=== PATIENT | female | born 1990 | race Caucasian/White ===

== ENCOUNTER 2021-07-09 07:06 | Emergency (ER) | payer OTHER ==
[~2021-07-09] VITALS: Ht 160 cm; Wt 75.0 kg
[2021-07-09] MEDS ORDERED: OMEP20 PO (07:28)
[2021-07-09] MEDS ORDERED: METF-960 PO (07:28)
[2021-07-09] MEDS ORDERED: ALBUTEROL SULFATE HFA 90 MCG/PUFF 8 GM INHALER IH ONE (07:45)
[2021-07-09] MEDS ORDERED: ACETAMINOPHEN 500 MG TABLET PO ONE (07:45)
[2021-07-09] MEDS ORDERED: SODIUM CHLORIDE 0.9% 1,000 ML IV ONE (07:45)
[2021-07-09 08:02] LABS: COVID AG,FIA SOURCE NASOPHARYNGEAL
[2021-07-09 08:04] LABS: BASOPHILS % (AUTO) 0.3 % (0.0-2.0); EOSINOPHILS % (AUTO) 2.6 % (1.0-6.0); HEMATOCRIT 38.4 % (36-46); HEMOGLOBIN 13.1 g/dL (12.0-16.0); LYMPHOCYTES # (AUTO) 2.6 K/uL (1.0-4.8); LYMPHOCYTES % (AUTO) 28.4 % (22.0-44.0); MEAN CORPUSCULAR HEMOGLOBIN 31.2 pg (26.0-34.0); MEAN CORPUSCULAR HGB CONC 34.2 G/dL (31.0-37.0); MEAN CORPUSCULAR VOLUME 91 fL (80-100); MONOCYTES # (AUTO) 0.6 K/uL (0.1-1.0); MONOCYTES % (AUTO) 6.7 % (2.0-9.0); NEUTROPHILS # (AUTO) 5.7 K/uL (1.8-7.7); PLATELET COUNT (AUTO) 232 K/uL (150-450); RED CELL DISTRIBUTION WIDTH 14.3 % (11.5-14.5)
[2021-07-09 08:20] LABS: ANION GAP 8 mmol/L (8-16); CALCIUM, TOTAL 8.6 mg/dL (8.8-10.5); CARBON DIOXIDE 29 mmol/L (22-29); CHLORIDE 105 mmol/L (98-107); CREATININE 0.59 mg/dL (0.60-1.30); GLOMERULAR FILTR. RATE CALC > 60 mL/min (>60); GLUCOSE,RANDOM 115 mg/dL (70-110); POTASSIUM 4.3 mmol/L (3.5-5.1); SODIUM SERUM 142 mmol/L (136-145); UREA NITROGEN, BLOOD 6 mg/dL (7-18)
[2021-07-09 08:43] LABS: ALANINE AMINOTRANSFERASE 57 U/L (12-78); ALBUMIN 2.9 g/dL (3.4-5.0); ALKALINE PHOSPHATASE 108 U/L (46-116); ASPARTATE AMINOTRANSFERASE 34 U/L (15-37); BILIRUBIN,TOTAL 0.3 mg/dL (0.1-1.0); HCG,QUANTITATIVE < 1 mIU/mL (0-6); LIPASE 90 U/L (73-393); TOTAL PROTEIN, SERUM 7.5 g/dL (6.4-8.2)
[2021-07-09 08:44] LABS: INFLUENZA TYPE A NEGATIVE FOR TYPE A (NEGATIVE); INFLUENZA TYPE B NEGATIVE FOR TYPE B (NEGATIVE); RAPID GROUP A STREP NEGATIVE (NEGATIVE)
[2021-07-09] MEDS ORDERED: KETOROLAC TROMETHAMINE 30 MG/ML VIAL IVP ONE (09:00)
[2021-07-09 09:30] VITALS: BP 99/59
== END 2021-07-09 10:48 | disposition home or self-care (01) ==
LOC: EMS 07:07
DX: J06.9 Acute upper respiratory infection, unspecified (principal); R11.2 Nausea with vomiting, unspecified; R19.7 Diarrhea, unspecified; J45.909 Unspecified asthma, uncomplicated; E11.9 Type 2 diabetes mellitus without complications; Z20.822 Contact with and (suspected) exposure to COVID-19; Z79.84 Long term (current) use of oral hypoglycemic drugs
CPT/HCPCS: 36415; 80053; 83690; 84702; 85025; 87426; 87430; 87804; 94640; 96361; 96374; 99283; J1885; J7030; U0003; J3535

== ENCOUNTER 2021-10-20 18:34 | Emergency (ER) | payer OTHER ==
[~2021-10-20] VITALS: Ht 139.7 cm; Wt 90.9 kg
[~2021-10-20 18:34] MED LIST: METF-1211 PO; OMEP20 PO
[2021-10-20 19:14] VITALS: BP 128/69
[2021-10-20] MEDS ORDERED: ALBU8HFA IH (19:16)
[2021-10-20 19:52] LABS: BASOPHILS % (AUTO) 0.4 % (0.0-2.0); HEMATOCRIT 40.4 % (36-46); HEMOGLOBIN 13.8 g/dL (12.0-16.0); LYMPHOCYTES # (AUTO) 2.5 K/uL (1.0-4.8); LYMPHOCYTES % (AUTO) 34.4 % (22.0-44.0); MEAN CORPUSCULAR HEMOGLOBIN 31.1 pg (26.0-34.0); MEAN CORPUSCULAR HGB CONC 34.3 G/dL (31.0-37.0); MEAN CORPUSCULAR VOLUME 91 fL (80-100); MONOCYTES # (AUTO) 0.4 K/uL (0.1-1.0); MONOCYTES % (AUTO) 5.6 % (2.0-9.0); NEUTROPHILS # (AUTO) 4.3 K/uL (1.8-7.7); NEUTROPHILS % (AUTO) 58.6 % (40.0-70.0); PLATELET COUNT (AUTO) 268 K/uL (150-450); RED BLOOD CELL COUNT(AUTO) 4.45 MIL/uL (4.00-5.20); RED CELL DISTRIBUTION WIDTH 14.2 % (11.5-14.5)
[2021-10-20 20:12] LABS: ANION GAP 10 mmol/L (8-16); CALCIUM, TOTAL 9.1 mg/dL (8.8-10.5); CARBON DIOXIDE 27 mmol/L (22-29); CHLORIDE 103 mmol/L (98-107); CREATININE 0.54 mg/dL (0.60-1.30); GLUCOSE,RANDOM 107 mg/dL (70-110); POTASSIUM 3.8 mmol/L (3.5-5.1); SODIUM SERUM 140 mmol/L (136-145); UREA NITROGEN, BLOOD 8 mg/dL (7-18)
[2021-10-20 20:13] LABS: GLOMERULAR FILTR. RATE CALC > 60 mL/min (>60)
[2021-10-20 20:26] LABS: ALANINE AMINOTRANSFERASE 89 U/L (12-78); ALBUMIN 3.2 g/dL (3.4-5.0); ALKALINE PHOSPHATASE 120 U/L (46-116); ASPARTATE AMINOTRANSFERASE 52 U/L (15-37); BILIRUBIN,TOTAL 0.2 mg/dL (0.1-1.0); HCG,QUANTITATIVE 1 mIU/mL (0-6); LIPASE 119 U/L (73-393); TOTAL PROTEIN, SERUM 8.3 g/dL (6.4-8.2)
[2021-10-20] MEDS ORDERED: ACETAMINOPHEN 500 MG TABLET PO ONE (21:45)
[2021-10-20] MEDS ORDERED: ONDANSETRON HCL 4 MG TABLET PO ONE (21:45)
[2021-10-20] MEDS ORDERED: DIPHENOXYLATE/ATROP 2.5-0.025 MG TABLET PO ONE (21:45)
[2021-10-20 22:10] LABS: COVID AG,FIA SOURCE NASOPHARYNGEAL
[2021-10-20] MEDS ORDERED: IBUP-2070 PO (23:16)
[2021-10-20] MEDS ORDERED: DIPH-654 PO (23:16)
[2021-10-20] MEDS ORDERED: ACET-2080 PO (23:16)
[2021-10-20] MEDS ORDERED: ONDA-104 PO (23:16)
== END 2021-10-20 23:44 | disposition home or self-care (01) ==
LOC: EMS 18:37
DX: S63.502A Unspecified sprain of left wrist, initial encounter (principal); K52.9 Noninfective gastroenteritis and colitis, unspecified; K76.0 Fatty (change of) liver, not elsewhere classified; I10 Essential (primary) hypertension; E11.9 Type 2 diabetes mellitus without complications; J45.909 Unspecified asthma, uncomplicated; Z79.84 Long term (current) use of oral hypoglycemic drugs; Z79.899 Other long term (current) drug therapy; Z20.822 Contact with and (suspected) exposure to COVID-19; W18.39XA Other fall on same level, initial encounter; Y93.89 Activity, other specified; Y92.89 Other specified places as the place of occurrence of the external cause; Y99.8 Other external cause status
CPT/HCPCS: 29125; 73110; 76700; 80053; 82962; 83690; 84702; 85025; 87426; 99285; Q0162; 29280

== ENCOUNTER 2021-12-06 18:24 | Emergency (ER) | payer OTHER ==
[~2021-12-06] VITALS: Ht 139.7 cm; Wt 100.0 kg
[~2021-12-06 18:24] MED LIST changes: +ACET-2080 PO; +ALBU8HFA IH; +DIPH-654 PO; +IBUP-2070 PO; +ONDA-104 PO
[2021-12-06 22:01] VITALS: BP 120/78
== END 2021-12-06 22:34 | disposition home or self-care (01) ==
LOC: EMS 18:27
DX: S00.83XA Contusion of other part of head, initial encounter (principal); S89.92XA Unspecified injury of left lower leg, initial encounter; Y08.89XA Assault by other specified means, initial encounter; Y93.89 Activity, other specified; Y92.89 Other specified places as the place of occurrence of the external cause; Y99.8 Other external cause status
CPT/HCPCS: 29530; 73552; 99284; 73590-TC; Z7502